=== PATIENT | female | born 1955 | race Caucasian/White ===

== ENCOUNTER → 2021-11-15 | Outpatient (CLI) | payer SELFPAY ==
[2021-11-15 17:57] LABS: EOS # 0.2 10^3/uL (0.0-0.5); HEMATOCRIT 43.7 % (36.0-47.0); HEMOGLOBIN 14.4 g/dl (12.0-15.5); LYMPH # 1.8 10^3/uL (1.5-5.0); LYMPH % 23.2 % (24.0-44.0); MEAN CORPUSCULAR HEMOGLOBIN 32.7 pg (27.0-33.0); MEAN CORPUSCULAR VOLUME 99.1 fl (80.0-96.0); MONO # 0.7 10^3/uL (0.0-0.8); MONO % 8.6 % (2.0-8.0); NEUTROPHILS % 64.8 % (36.0-66.0); PLATELET COUNT, AUTOMATED 329 10^3/uL (150-450); RED BLOOD COUNT 4.41 10^6/uL (4.00-5.40); WHITE BLOOD COUNT 7.8 10^3/uL (4.0-10.0)
[2021-11-15 18:27] LABS: HEMOGLOBIN A1c 6.4 %
[2021-11-15 18:31] LABS: ALBUMIN 4.4 GM/DL (3.2-5.2); ALT/SGPT 23 U/L (12-78); BILIRUBIN,TOTAL 0.2 MG/DL (0.2-1.0); BLOOD UREA NITROGEN 11 MG/DL (7-18); CALCIUM LEVEL 10.5 MG/DL (8.8-10.2); CARBON DIOXIDE LEVEL 28 MEQ/L (21-32); CHLORIDE LEVEL 101 MEQ/L (98-107); CHOLESTEROL LEVEL 201 MG/DL (<200); CHOLESTEROL RISK RATIO 2.753 (<5); FREE T4 0.83 NG/DL (0.76-1.46); GLOMERULAR FILTRATION RATE > 60.0 (>45); GLUCOSE, FASTING 84 MG/DL (70-100); HDL CHOLESTEROL 73 MG/DL (>40); LDL CHOLESTEROL 111 MG/DL (<100); NON-HDL-C 128 MG/DL; POTASSIUM SERUM 4.1 MEQ/L (3.5-5.1); SODIUM LEVEL 134 MEQ/L (136-145); TOTAL PROTEIN 8.5 GM/DL (6.4-8.2); TRIGLYCERIDES LEVEL 87 MG/DL (<150)
[2021-11-15 18:53] LABS: VITAMIN B12 LEVEL 1120 PG/ML (247-911)
== END ==
LOC: M PLALAB 15:12 → M PLAIMG 15:12
PROVIDERS: ATTEND Nurse Practitioner Family
DX: R06.02 Shortness of breath (principal); I10 Essential (primary) hypertension; R44.3 Hallucinations, unspecified; Z13.228 Encounter for screening for other metabolic disorders; R91.8 Other nonspecific abnormal finding of lung field

== ENCOUNTER → 2022-03-31 | Outpatient (CLI) | payer MEDICARE, MEDICAID ==
[2022-03-31 13:36] LABS: BASO % 0.1 % (0.0-1.0); EOS # 0.2 10^3/uL (0.0-0.5); HEMATOCRIT 39.7 % (36.0-47.0); HEMOGLOBIN 12.6 g/dl (12.0-15.5); LYMPH # 1.7 10^3/uL (1.5-5.0); LYMPH % 22.6 % (24.0-44.0); MEAN CORPUSCULAR HEMOGLOBIN 32.8 pg (27.0-33.0); MEAN CORPUSCULAR HGB CONC 31.7 g/dl (32.0-36.5); MEAN CORPUSCULAR VOLUME 103.4 fl (80.0-96.0); MONO # 0.8 10^3/uL (0.0-0.8); MONO % 9.8 % (2.0-8.0); NEUTROPHILS % 65.2 % (36.0-66.0); PLATELET COUNT, AUTOMATED 333 10^3/uL (150-450); RED BLOOD COUNT 3.84 10^6/uL (4.00-5.40); WHITE BLOOD COUNT 7.7 10^3/uL (4.0-10.0)
[2022-03-31 13:54] LABS: HEMOGLOBIN A1c 5.6 % (4.0-6.0)
[2022-03-31 14:04] LABS: CREATININE, URINE 66.5 MG/DL
[2022-03-31 14:07] LABS: MAU/CREAT RATIO 13.5 MCG/MG (0.0-30.0)
[2022-03-31 14:09] LABS: TOTAL 25(OH) VITAMIN D 37.4 NG/ML (20.0-100.0)
[2022-03-31 14:12] LABS: ALBUMIN 3.9 G/DL (3.2-5.2); ALKALINE PHOSPHATASE 108 U/L (46-116); ALT/SGPT 14 U/L (7.0-40); AST/SGOT 16 U/L (<34); BILIRUBIN,TOTAL 0.2 MG/DL (0.3-1.2); BLOOD UREA NITROGEN 13 MG/DL (9-23); CALCIUM LEVEL 9.7 MG/DL (8.3-10.6); CARBON DIOXIDE LEVEL 25 MMOL/L (20-31); CHLORIDE LEVEL 103 MMOL/L (98-107); CHOLESTEROL LEVEL 158 MG/DL (<200); CHOLESTEROL RISK RATIO 2.41 (<5); CREATININE FOR GFR 0.75 MG/DL (0.55-1.30); GLOMERULAR FILTRATION RATE > 60.0 (>45); GLUCOSE, FASTING 103 MG/DL (74-106); HDL CHOLESTEROL 65.5 MG/DL (>40); LDL CHOLESTEROL 72.7 MG/DL (<100); NON-HDL-C 93 MG/DL; POTASSIUM SERUM 4.1 MMOL/L (3.5-5.1); SODIUM LEVEL 140 MMOL/L (136-145); TOTAL PROTEIN 7.3 G/DL (5.7-8.2); TRIGLYCERIDES LEVEL 99 MG/DL (<150)
== END ==
LOC: M PLALAB 09:54
PROVIDERS: ATTEND Nurse Practitioner Family
DX: I10 Essential (primary) hypertension (principal); E78.5 Hyperlipidemia, unspecified; E11.9 Type 2 diabetes mellitus without complications; E55.9 Vitamin D deficiency, unspecified

== ENCOUNTER 2023-02-26 12:44 | Emergency (ER) | payer MEDICARE, MEDICAID ==
[2023-02-26 16:10] VITALS: TEMP 98
[2023-02-26 17:05] LABS: BASO % 0.1 % (0.0-1.0); EOS # 0.2 10^3/uL (0.0-0.5); EOS % 1.8 % (0.0-3.0); HEMATOCRIT 37.5 % (36.0-47.0); HEMOGLOBIN 12.4 g/dl (12.0-15.5); LYMPH # 2.1 10^3/uL (1.5-5.0); LYMPH % 25.6 % (24.0-44.0); MEAN CORPUSCULAR HEMOGLOBIN 32.9 pg (27.0-33.0); MEAN CORPUSCULAR HGB CONC 33.1 g/dl (32.0-36.5); MEAN CORPUSCULAR VOLUME 99.5 fl (80.0-96.0); MONO # 0.7 10^3/uL (0.0-0.8); MONO % 8.8 % (2.0-8.0); NEUTROPHILS # 5.3 10^3/uL (1.5-8.5); NEUTROPHILS % 63.5 % (36.0-66.0); PLATELET COUNT, AUTOMATED 250 10^3/uL (150-450); RED BLOOD COUNT 3.77 10^6/uL (4.00-5.40); WHITE BLOOD COUNT 8.3 10^3/uL (4.0-10.0)
[2023-02-26 17:34] LABS: BLOOD UREA NITROGEN 23 MG/DL (9-23); CALCIUM LEVEL 9.9 MG/DL (8.3-10.6); CARBON DIOXIDE LEVEL 25 MMOL/L (20-31); CHLORIDE LEVEL 104 MMOL/L (98-107); CREATININE FOR GFR 0.72 MG/DL (0.55-1.30); GLOMERULAR FILTRATION RATE > 60.0 (>45); GLUCOSE, FASTING 77 MG/DL (74-106); SODIUM LEVEL 140 MMOL/L (136-145)
[2023-02-26 17:37] LABS: ERYTHROCYTE SEDIMENTATION RATE 74 mm/hr (0-30)
[2023-02-26] MEDS ORDERED: ISOVUE-370 76% 100ML VIAL As Ordered ONE (18:18)
[2023-02-26 20:08] LABS: ALBUMIN 3.7 G/DL (3.2-5.2); ALKALINE PHOSPHATASE 105 U/L (46-116); ALT/SGPT 15 U/L (7.0-40); AST/SGOT 18 U/L (<34); BILIRUBIN,DIRECT < 0.1 MG/DL (<0.4); BILIRUBIN,TOTAL 0.3 MG/DL (0.3-1.2); TOTAL PROTEIN 7.7 G/DL (5.7-8.2)
[2023-02-26 20:15] LABS: INR 1.05; PROTHROMBIN TIME 13.4 SECONDS (12.5-14.5)
[2023-02-26 20:16] LABS: PARTIAL THROMBOPLASTIN TIME 24.8 SECONDS (24.8-34.2)
[2023-02-26] MEDS ORDERED: ASPI81TA26 PO (20:36)
[2023-02-26] MEDS ORDERED: CLOP75TA2 PO (20:36)
[2023-02-26 20:46] VITALS: BP 123/77; O2SAT 99
== END 2023-02-26 20:48 | disposition home or self-care (01) ==
LOC: M ED 12:44
DX: I73.9 Peripheral vascular disease, unspecified (principal); F17.200 Nicotine dependence, unspecified, uncomplicated; Z79.82 Long term (current) use of aspirin; Z79.899 Other long term (current) drug therapy
CPT/HCPCS: 36415; 75635; 80048; 80076; 85025; 85610; 85652; 85730; 86140; 99284; Q9967

== ENCOUNTER 2023-04-28 09:02 | Emergency (ER) | payer MEDICARE, MEDICAID ==
[~2023-04-28] VITALS: Ht 170.2 cm; Wt 43.8 kg
[~2023-04-28 09:02] MED LIST: ASPI81TA26 PO; CLOP75TA2 PO
[2023-04-28 11:18] VITALS: BP 153/82; TEMP 98.7; O2SAT 98
== END 2023-04-28 11:26 | disposition home or self-care (01) ==
LOC: M ED 09:02 → EDBD 09:02 → M ED 11:26
DX: R53.81 Other malaise (principal); E11.9 Type 2 diabetes mellitus without complications; I10 Essential (primary) hypertension; J44.9 Chronic obstructive pulmonary disease, unspecified; F17.200 Nicotine dependence, unspecified, uncomplicated

== ENCOUNTER 2023-10-22 09:06 | Inpatient (IN) | payer MEDICARE, MEDICAID ==
[~2023-10-22] VITALS: Ht 167.6 cm; Wt 45.5 kg
[2023-10-22 10:07] LABS: BASO % 0.2 % (0.0-1.0); EOS # 0.2 10^3/uL (0.0-0.5); EOS % 3.5 % (0.0-3.0); HEMOGLOBIN 13.5 g/dl (12.0-15.5); LYMPH # 1.5 10^3/uL (1.5-5.0); MEAN CORPUSCULAR HEMOGLOBIN 33.3 pg (27.0-33.0); MEAN CORPUSCULAR HGB CONC 32.9 g/dl (32.0-36.5); MEAN CORPUSCULAR VOLUME 101.2 fl (80.0-96.0); MONO # 0.7 10^3/uL (0.0-0.8); NEUTROPHILS # 3.5 10^3/uL (1.5-8.5); NEUTROPHILS % 58.3 % (36.0-66.0); PLATELET COUNT, AUTOMATED 246 10^3/uL (150-450); RED BLOOD COUNT 4.05 10^6/uL (4.00-5.40); WHITE BLOOD COUNT 5.9 10^3/uL (4.0-10.0)
[2023-10-22 10:28] LABS: ETHYL ALCOHOL (ETHANOL) 0.004 % (0.000-0.010)
[2023-10-22 10:29] LABS: OSMOLALITY SERUM 306 MOSM/KG (280-301); SALICYLATE LEVEL < 3.0 MG/DL (<30)
[2023-10-22 10:30] LABS: ALBUMIN 3.7 G/DL (3.2-5.2); ALKALINE PHOSPHATASE 92 U/L (46-116); ALT/SGPT 16 U/L (7.0-40); AST/SGOT 18 U/L (<34); BILIRUBIN,DIRECT < 0.1 MG/DL (<0.4); BILIRUBIN,TOTAL 0.3 MG/DL (0.3-1.2); BLOOD UREA NITROGEN 18 MG/DL (9-23); CALCIUM LEVEL 10.1 MG/DL (8.3-10.6); CARBON DIOXIDE LEVEL 28 MMOL/L (20-31); CHLORIDE LEVEL 106 MMOL/L (98-107); CREATININE FOR GFR 0.83 MG/DL (0.55-1.30); GLOMERULAR FILTRATION RATE > 60.0 (>39); GLUCOSE, FASTING 122 MG/DL (74-106); POTASSIUM SERUM 5.7 MMOL/L (3.5-5.1); SODIUM LEVEL 139 MMOL/L (136-145); TOTAL PROTEIN 7.5 G/DL (5.7-8.2)
[2023-10-22 10:32] LABS: THYROID STIMULATING HORMONE 3.586 uIU/ML (0.55-4.78)
[2023-10-22 10:57] VITALS: O2SAT 94
[2023-10-22] MEDS ORDERED: HOME MED LIST COMPLETE! XX SCH (11:45)
[2023-10-22] MEDS: CALCIUM GLUCONATE 1,000MG/10ML VIAL (100MG/ML) IV ONE (11:58)
[2023-10-22] MEDS: DEXTROSE 50% 50ML SYRINGE IV ONE (11:58)
[2023-10-22] MEDS: SODIUM BICARBONATE 8.4% INJ 50ML SYRINGE IV ONE (11:58)
[2023-10-22] MEDS: HumuLIN R (REGULAR) INSULIN (NovoLIN R) **100U/ML** PER UNIT IV ONE (11:59)
[2023-10-22] MEDS: PATIROMER SORBITEX CALCIUM 8.4 GM POWDER PACKET (VELTASSA) PO ONE (12:23)
[2023-10-22] MEDS: ALBUTEROL SULFATE 2.5MG/0.5ML INH NEB SOLN INH ONE (12:25)
[2023-10-22 13:36] LABS: C REACTIVE PROTEIN QUANTITATIV < 0.40 MG/DL (<1.0)
[2023-10-22 13:37] LABS: CHOLESTEROL LEVEL 239 MG/DL (<200); CHOLESTEROL RISK RATIO 3.83 (<5); HDL CHOLESTEROL 62.4 MG/DL (>40); LDL CHOLESTEROL 154.6 MG/DL (<100); NON-HDL-C 176.6 MG/DL; TRIGLYCERIDES LEVEL 110 MG/DL (<150)
[2023-10-22 13:38] LABS: RHEUMATOID FACTOR QUANT 4.2 IU/ML (<14)
[2023-10-22 13:40] LABS: FREE T4 0.96 NG/DL (0.89-1.76); VITAMIN B12 LEVEL 547 PG/ML (211-911)
[2023-10-22] MEDS: ASPIRIN 81MG ENTERIC TABLET PO SCH (13:43)
[2023-10-22 14:01] LABS: FOLATE 19.37 NG/ML (>5.4)
[2023-10-22 14:06] LABS: HEMOGLOBIN A1c 5.4 % (4.0-6.0)
[2023-10-22 15:29] VITALS: BP 186/88; TEMP 97.9; O2SAT 98
[2023-10-22 15:32] VITALS: BP 184/86; TEMP 97.9; O2SAT 98
[2023-10-22 16:04] VITALS: BP 158/88
[2023-10-22 18:50] LABS: BLOOD UREA NITROGEN 16 MG/DL (9-23); CALCIUM LEVEL 10.8 MG/DL (8.3-10.6); CARBON DIOXIDE LEVEL 30 MMOL/L (20-31); CHLORIDE LEVEL 103 MMOL/L (98-107); CREATININE FOR GFR 0.73 MG/DL (0.55-1.30); GLOMERULAR FILTRATION RATE > 60.0 (>39); GLUCOSE, FASTING 107 MG/DL (74-106); POTASSIUM SERUM 3.9 MMOL/L (3.5-5.1); SODIUM LEVEL 140 MMOL/L (136-145)
[2023-10-22 19:50] VITALS: BP 137/73; TEMP 98.1; O2SAT 98
[2023-10-23] VITALS: BP 147/78; TEMP 97.6; O2SAT 99
[2023-10-23 04:45] VITALS: BP 130/72; TEMP 98.1; O2SAT 99
[2023-10-23 06:21] LABS: HEMATOCRIT 38.5 % (36.0-47.0); HEMOGLOBIN 12.7 g/dl (12.0-15.5); MEAN CORPUSCULAR HEMOGLOBIN 33.2 pg (27.0-33.0); MEAN CORPUSCULAR VOLUME 100.5 fl (80.0-96.0); PLATELET COUNT, AUTOMATED 247 10^3/uL (150-450); RED BLOOD COUNT 3.83 10^6/uL (4.00-5.40); WHITE BLOOD COUNT 5.8 10^3/uL (4.0-10.0)
[2023-10-23 06:49] LABS: ALBUMIN 3.3 G/DL (3.2-5.2); ALKALINE PHOSPHATASE 83 U/L (46-116); ALT/SGPT 14 U/L (7.0-40); AST/SGOT 13 U/L (<34); BILIRUBIN,TOTAL 0.4 MG/DL (0.3-1.2); BLOOD UREA NITROGEN 17 MG/DL (9-23); CALCIUM LEVEL 9.6 MG/DL (8.3-10.6); CARBON DIOXIDE LEVEL 28 MMOL/L (20-31); CHLORIDE LEVEL 105 MMOL/L (98-107); CREATININE FOR GFR 0.78 MG/DL (0.55-1.30); GLOMERULAR FILTRATION RATE > 60.0 (>39); GLUCOSE, FASTING 91 MG/DL (74-106); MAGNESIUM LEVEL 1.7 MG/DL (1.8-2.4); POTASSIUM SERUM 4.3 MMOL/L (3.5-5.1); SODIUM LEVEL 137 MMOL/L (136-145); TOTAL PROTEIN 6.9 G/DL (5.7-8.2)
[2023-10-23 08:00] VITALS: BP 147/79; TEMP 98.1; O2SAT 99
[2023-10-23] MEDS: ATORVASTATIN 20 MG TAB PO SCH (09:13)
[2023-10-23 12:00] VITALS: BP 135/71; TEMP 98; O2SAT 98
[2023-10-23 14:57] LABS: ANA SCREEN, IFA NEGATIVE (NEGATIVE)
[2023-10-23] MEDS: MAGNESIUM OXIDE 400MG TAB (MAG-OX) PO ONE (15:47)
[2023-10-23 16:00] VITALS: BP 138/88; TEMP 97.6; O2SAT 99
[2023-10-23] MEDS: RIVAROXABAN 10MG TAB (XARELTO) PO SCH (18:20)
[2023-10-23 20:21] VITALS: BP 120/63; TEMP 98.1; O2SAT 98
[2023-10-24] VITALS (7 sets, daily range): BP systolic 123–148; BP diastolic 62–82; TEMP 97.7–98.1; O2SAT 97–100
[2023-10-24 07:06] LABS: BLOOD UREA NITROGEN 18 MG/DL (9-23); CALCIUM LEVEL 9.4 MG/DL (8.3-10.6); CARBON DIOXIDE LEVEL 29 MMOL/L (20-31); CHLORIDE LEVEL 107 MMOL/L (98-107); CREATININE FOR GFR 0.72 MG/DL (0.55-1.30); GLOMERULAR FILTRATION RATE > 60.0 (>39); GLUCOSE, FASTING 93 MG/DL (74-106); MAGNESIUM LEVEL 2.1 MG/DL (1.8-2.4); POTASSIUM SERUM 4.2 MMOL/L (3.5-5.1); SODIUM LEVEL 141 MMOL/L (136-145)
[2023-10-24] MEDS ORDERED: ENOXAPARIN 40MG/0.4ML SYRINGE (J1650 PER 10MG) SC SCH (09:00)
[2023-10-24 11:22] LABS: FREE KAPPA LIGHT CHAINS SERUM 46.6 mg/L (3.3-19.4); FREE LAMBDA LIGHT CHAINS SERUM 25.3 mg/L (5.7-26.3); KAPPA/LAMBDA RATIO SERUM 1.84 (0.26-1.65)
[2023-10-25 00:30] VITALS: BP 138/69; TEMP 98.1; O2SAT 99
[2023-10-25 04:26] VITALS: BP 153/86; TEMP 98.1; O2SAT 99
[2023-10-25 08:00] VITALS: BP 140/84; TEMP 97.6; O2SAT 100
[2023-10-25 10:03] LABS: PROTEIN, TOTAL SO 7.7 g/dL (6.1-8.1)
[2023-10-25] MEDS ORDERED: ASPI81TAEC PO (10:44)
[2023-10-25] MEDS ORDERED: ATOR40TA75 PO (10:44)
[2023-10-26 11:22] LABS: ALPHA 1 GLOBULINS SO 0.3 g/dL (0.2-0.3); BETA 2 GLOBULIN SO 0.5 g/dL (0.2-0.5); BETA GLOBULIN SO 0.4 g/dL (0.4-0.6); GAMMA GLOBULINS SO 1.5 g/dL (0.8-1.7)
[2023-10-26 12:02] LABS: PROTEIN CREATININE RATIO 196 mg/g creat (24-184); T PROTEIN CREATININE RATIO 0.196 (0.024-0.184); UPEP CREATININE 46 mg/dL (20-275); UPEP TOTAL PROTEIN 9 mg/dL (5-24)
[2023-10-26 12:36] LABS: ALBUMIN SO 4.2 g/dL (3.8-4.8); ALPHA 2 GLOBULINS SO 0.8 g/dL (0.5-0.9)
[2023-10-29 08:03] LABS: UPEP ALBUMIN 100 %; URINE ALPHA 1 GLOBULIN 0 %; URINE ALPHA 2 GLOBULIN 0 %; URINE BETA GLOBULIN 0 %; URINE GAMMA GLOBULIN 0 %
== END 2023-10-25 11:56 | disposition home or self-care (01) | DRG 884 ==
LOC: M ED 09:06 → EDBD 09:06 → M ED INP 09:07 → M MSPAV 15:34 → OBSVTOIN 10-23 13:48
PROVIDERS: ADMIT Family Medicine; ATTEND Internal Medicine
DX: R54 Age-related physical debility (principal); Z68.1 Body mass index [BMI] 19.9 or less, adult; F17.200 Nicotine dependence, unspecified, uncomplicated; J44.9 Chronic obstructive pulmonary disease, unspecified; I10 Essential (primary) hypertension; E11.51 Type 2 diabetes mellitus with diabetic peripheral angiopathy without gangrene; E78.5 Hyperlipidemia, unspecified; I25.10 Atherosclerotic heart disease of native coronary artery without angina pectoris; R63.6 Underweight; E87.5 Hyperkalemia; E83.42 Hypomagnesemia; R53.1 Weakness; F01.50 Vascular dementia, unspecified severity, without behavioral disturbance, psychotic disturbance, mood disturbance, and anxiety

== ENCOUNTER 2024-09-29 21:55 | Emergency (ER) | payer MEDICARE, MEDICAID ==
[~2024-09-29] VITALS: Ht 170.2 cm; Wt 45.4 kg
[~2024-09-29 21:55] MED LIST changes: +ASPI81TAEC PO; +ATOR40TA75 PO
[2024-09-30] MEDS ORDERED: MIRA3350 PO (11:41)
[2024-09-30 11:56] VITALS: BP 186/90; TEMP 97.5; O2SAT 97
== END 2024-09-30 12:02 | disposition home or self-care (01) ==
LOC: M ED 21:55
DX: L85.3 Xerosis cutis (principal); E11.9 Type 2 diabetes mellitus without complications; Z79.82 Long term (current) use of aspirin; Z79.899 Other long term (current) drug therapy

== ENCOUNTER 2024-10-06 12:00 | Observation (INO) | payer MEDICARE, MEDICAID ==
[~2024-10-06] VITALS: Ht 170.2 cm; Wt 46.2 kg
[~2024-10-06 12:00] MED LIST changes: +MIRA3350 PO
[2024-10-06] MEDS ORDERED: HOME MED LIST COMPLETE! XX SCH (13:50)
[2024-10-06 14:59] LABS: BASO # 0.0 10^3/uL (0.0-0.2); BASO % 0.6 % (0.0-1.0); EOS # 0.1 10^3/uL (0.0-0.5); EOS % 2.1 % (0.0-3.0); LYMPH # 1.3 10^3/uL (1.5-5.0); LYMPH % 20.5 % (24.0-44.0); MONO # 0.5 10^3/uL (0.0-0.8); MONO % 8.3 % (2.0-8.0); NEUTROPHILS # 4.3 10^3/uL (1.5-8.5); NEUTROPHILS % 68.2 % (36.0-66.0); PLATELET COUNT, AUTOMATED 338 10^3/uL (150-450)
[2024-10-06 15:16] LABS: CALCIUM LEVEL 9.5 MG/DL (8.3-10.6); CARBON DIOXIDE LEVEL 27.0 MMOL/L (20-31); CHLORIDE LEVEL 103.0 MMOL/L (98-107); CREATININE FOR GFR 0.82 MG/DL (0.55-1.30); GLOMERULAR FILTRATION RATE 76.4 (>39); POTASSIUM SERUM 4.1 MMOL/L (3.5-5.1); SODIUM LEVEL 143.0 MMOL/L (136-145)
[2024-10-06 16:02] LABS: FREE T4 1.01 NG/DL (0.89-1.76)
[2024-10-06] MEDS ORDERED: DEXTROSE 50% 50 ML SYRINGE IV PRN ×2 (17:15)
[2024-10-06] MEDS ORDERED: GLUCAGON INJ 1 MG VIAL SC PRN (17:15)
[2024-10-06] MEDS ORDERED: GLUCOSE 4 GM CHEW PO PRN (17:15)
[2024-10-06 17:50] VITALS: BP 149/84; TEMP 97.9; O2SAT 98
[2024-10-06 20:46] VITALS: BP 115/58; TEMP 97.9; O2SAT 97
[2024-10-07 04:17] VITALS: BP 116/65; TEMP 97.7; O2SAT 94
[2024-10-07] MEDS: ACETAMINOPHEN 500 MG TAB PO ONE (10:05)
[2024-10-07 11:31] LABS: BASO # 0.0 10^3/uL (0.0-0.2); BASO % 0.5 % (0.0-1.0); EOS # 0.2 10^3/uL (0.0-0.5); EOS % 3.6 % (0.0-3.0); LYMPH # 1.3 10^3/uL (1.5-5.0); LYMPH % 21.0 % (24.0-44.0); MONO # 0.7 10^3/uL (0.0-0.8); MONO % 11.6 % (2.0-8.0); NEUTROPHILS # 3.8 10^3/uL (1.5-8.5); NEUTROPHILS % 63.1 % (36.0-66.0); PLATELET COUNT, AUTOMATED 335 10^3/uL (150-450)
[2024-10-07 11:49] LABS: ESTIMATED AVERAGE GLUCOSE 114.0 MG/DL (60-110)
[2024-10-07 12:00] VITALS: BP 152/88; TEMP 97.7; O2SAT 99
[2024-10-07 12:03] LABS: ALT/SGPT < 9 U/L (7.0-40); AST/SGOT 15 U/L (<34); CALCIUM LEVEL 9.1 MG/DL (8.3-10.6); CARBON DIOXIDE LEVEL 30 MMOL/L (20-31); CHLORIDE LEVEL 105 MMOL/L (98-107); CHOLESTEROL LEVEL 199 MG/DL (<200); CHOLESTEROL RISK RATIO 3.74 (<5); CK-MB VALUE MASS 1.9 NG/ML (<3.6); CPK CREATINE PHOSPHOKINASE 46 U/L (34-145); CREATININE FOR GFR 0.84 MG/DL (0.55-1.30); GLOMERULAR FILTRATION RATE 74.3 (>39); LDL CHOLESTEROL 129.6 MG/DL (<100); MB/CK RELATIVE INDEX 4.13 (< OR =4); NON-HDL-C 145.8 MG/DL; POTASSIUM SERUM 4.3 MMOL/L (3.5-5.1); SODIUM LEVEL 143 MMOL/L (136-145); TRIGLYCERIDES LEVEL 81 MG/DL (<150)
[2024-10-07] MEDS: GABAPENTIN 100 MG CAP PO ONE (14:00)
[2024-10-07] MEDS: ASPIRIN 81 MG CHEWABLE TABLET PO SCH (14:09)
[2024-10-07 20:23] VITALS: BP 121/71; TEMP 97.9; O2SAT 98
[2024-10-07] MEDS: ATORVASTATIN 20 MG TAB PO SCH (21:00)
[2024-10-08 04:00] VITALS: BP 123/72; TEMP 97.7; O2SAT 98
[2024-10-08 12:00] VITALS: BP 130/74; TEMP 97.9; O2SAT 98
[2024-10-08] MEDS: GABAPENTIN 100 MG CAP PO ONE (14:04)
[2024-10-08] MEDS: PERCOCET 5MG/325MG TAB PO ONE (14:05)
[2024-10-08] MEDS: CILOSTAZOL 100 MG TAB PO SCH (15:30)
[2024-10-08] MEDS: ANALGESIC BALM CRM 3 OZ TOP SCH (15:30)
[2024-10-08] MEDS: ACETAMINOPHEN 500 MG TAB PO SCH (17:43)
[2024-10-08 21:50] VITALS: BP 107/65; TEMP 98.2; O2SAT 97
[2024-10-09 05:05] VITALS: BP 121/81; TEMP 97.5; O2SAT 98
[2024-10-09 14:00] VITALS: BP 116/56; TEMP 97.9; O2SAT 97
[2024-10-10 04:33] VITALS: BP 131/75; TEMP 98.6; O2SAT 99
[2024-10-10 12:00] VITALS: BP 113/62; TEMP 97.3; O2SAT 100
[2024-10-11 04:24] VITALS: BP 134/90; TEMP 97.7; O2SAT 98
[2024-10-11 09:18] VITALS: BP 130/86; TEMP 97.8; O2SAT 99
[2024-10-12 03:31] VITALS: BP 118/70; TEMP 97.9; O2SAT 98
[2024-10-12 09:56] VITALS: BP 118/70; TEMP 97.9; O2SAT 98
[2024-10-13 06:49] VITALS: BP 129/68; TEMP 97.7; O2SAT 99
[2024-10-13] MEDS ORDERED: ACETAMINOPHEN 500 MG TAB PO PRN (18:05)
[2024-10-13] MEDS ORDERED: ANALGESIC BALM CRM 3 OZ TOP PRN (18:05)
[2024-10-14 04:07] VITALS: BP 126/73; TEMP 97.7; O2SAT 98
[2024-10-14] MEDS ORDERED: PILL CUTTER 1 EACH XX ONE (08:50)
[2024-10-15 04:11] VITALS: BP 153/91; TEMP 97.7; O2SAT 99
[2024-10-16 05:33] VITALS: BP 142/79; TEMP 97.3; O2SAT 99
[2024-10-17 06:30] VITALS: BP 137/76; TEMP 97.9; O2SAT 98
[2024-10-18 04:22] VITALS: BP 128/71; TEMP 97; O2SAT 98
[2024-10-19 05:25] VITALS: BP 121/68; TEMP 97.7; O2SAT 97
[2024-10-20 03:59] VITALS: BP 152/89; TEMP 97.9; O2SAT 98
[2024-10-21 04:04] VITALS: BP 132/81; TEMP 97.8; O2SAT 98
[2024-10-21] MEDS ORDERED: ATOR1TAB21 PO (13:17)
[2024-10-21] MEDS ORDERED: ACET-683 PO (13:17)
[2024-10-21] MEDS ORDERED: ASPI81CH8 PO (13:17)
[2024-10-21] MEDS ORDERED: CILO100T3 PO (13:17)
[2024-10-21] MEDS ORDERED: ENSUMIS6 PO (13:19)
== END 2024-10-21 14:34 ==
LOC: EDBD 12:00 → M ED 12:00 → M ED INP 12:01 → M MSPAV 17:46
PROVIDERS: ADMIT General Practice; ATTEND Student in an Organized Health Care Education/Training Program
DX: R62.7 Adult failure to thrive (principal); E43 Unspecified severe protein-calorie malnutrition; R54 Age-related physical debility; F33.2 Major depressive disorder, recurrent severe without psychotic features; I70.233 Atherosclerosis of native arteries of right leg with ulceration of ankle; F17.210 Nicotine dependence, cigarettes, uncomplicated; J44.9 Chronic obstructive pulmonary disease, unspecified; I10 Essential (primary) hypertension; Z86.73 Personal history of transient ischemic attack (TIA), and cerebral infarction without residual deficits; E11.9 Type 2 diabetes mellitus without complications; E78.5 Hyperlipidemia, unspecified; R63.6 Underweight; R64 Cachexia; Z68.1 Body mass index [BMI] 19.9 or less, adult; I25.84 Coronary atherosclerosis due to calcified coronary lesion; E87.5 Hyperkalemia; Z60.4 Social exclusion and rejection; Z63.4 Disappearance and death of family member; K08.9 Disorder of teeth and supporting structures, unspecified; Z79.82 Long term (current) use of aspirin; Z79.899 Other long term (current) drug therapy
CPT/HCPCS: 36415; 80048; 80053; 80061; 82248; 82550; 82553; 83036; 84134; 84439; 84443; 84484; 85025; 93925; 97116; 97161; 97165; 99285; G0378